=== PATIENT | female | born 1965 | race Caucasian/White ===

== ENCOUNTER → 2021-12-21 | Outpatient (CLI) | payer BC ==
[~2021-12-21] MED LIST: COLACE 100MG C100 MG PO; IBUPROFEN600 MG PO; LORTAB 5-325 M1 EACH PO; PRINIVIL10 MG PO; SYNTHROID75 MCG PO
== END ==
LOC: CT 14:49
DX: R47.01 Aphasia (principal); R41.0 Disorientation, unspecified
CPT/HCPCS: 70470; Q9967